=== PATIENT | female | born 1985 | race Caucasian/White ===

== ENCOUNTER 2017-09-17 03:52 | Emergency (ER) | payer BC ==
[2017-09-17] MEDS ORDERED: Ondansetron HCl/PF 4 MG/2 ML Vial ONE (04:07)
[2017-09-17] MEDS ORDERED: Ketorolac Tromethamine 30 MG/ML VIAL ONE (04:07)
[2017-09-17 04:22] LABS: #Basophils 0.2 thou/uL (0.0-0.2); #Eosinphils 0.1 thou/uL (0.0-0.7); #Lymphocytes 2.8 thou/uL (1.20-3.40); #Monocytes 0.8 thou/uL (0.11-0.59); #Neutrophils 8.2 thou/uL (1.40-6.50); %Basophils 1.3 % (0.0-1.0); %Eosinophils 1.2 % (0.0-10.0); %Lymphocytes 23.3 % (21.0-51.0); %Monocytes 6.5 % (0.0-10.0); %Neutrophils 67.7 % (42.0-75.0); Bilirubin Negative (Negative); Blood, Urine Trace (Negative); Clarity Clear (Clear); Glucose, Urine (Dipstick) Negative (Negative); Hemoglobin 13.3 g/dL (12.0-16.0); Leukocyte Negative (Negative); Mean Corpuscular Hemoglobin 29.5 pg (27.0-31.0); Mean Corpuscular Volume 89.4 fl (81.0-99.0); Mean Platelet Volume 7.4 fL (7.4-10.4); Nitrite Negative (Negative); Platelet Count 213 thou/uL (130-400); Protein, Urine (Dipstick) Negative (Neg-Trace); RBC Distribution Width 13.5 % (11.5-14.5); Red Blood Cell (RBC) Count 4.51 mill/uL (4.20-5.40); Specific Gravity, Urine 1.025 (1.005-1.030); Urobilinogen 0.2 mg/dL (0.2-1.0); White Blood Cell (WBC) Count 12.1 thou/uL (4.8-10.8)
[2017-09-17 04:23] LABS: Pregnancy Test - Urine (BHCG) Negative (Negative); Pregu Control Background? CLEAR/WHITE (CLR/WHITE); Pregu Control Bar Appear? YES (CONTROL BAR); Specific Gravity 1.025 (1.002-1.036)
[2017-09-17 04:30] LABS: RBC/HPF 0-3 HPF (0-3); WBC/HPF None Seen HPF (0-3)
[2017-09-17 04:31] LABS: Bacteria/HPF 1+ HPF (None Seen)
[2017-09-17 04:36] LABS: ALT (SGPT) 12 U/L (8-55); AST (SGOT) 12 U/L (5-34); Albumin 4.1 g/dL (3.5-5.0); Alkaline Phosphatase 56 U/L (40-150); Anion Gap 14 mmol/L (10-20); BUN (Urea Nitrogen) 12 mg/dL (7.0-18.7); Bilirubin, Total 0.2 mg/dL (0.2-1.2); Calc. Creatinine Clearance 0 mL/min (70-130); Calcium 9.2 mg/dL (7.8-10.44); Carbon Dioxide 24 mmol/L (22-29); Chloride 104 mmol/L (98-107); Estimated GFR-MDRD 85; Globulin 3.4 g/dL (2.4-3.5); Glucose 115 mg/dL (70-105); Lipase 21 U/L (8-78); Potassium 3.8 mmol/L (3.5-5.1); Protein, Total 7.5 g/dL (6.0-8.3); Sodium 138 mmol/L (136-145)
== END 2017-09-17 05:18 | disposition home or self-care (01) ==
LOC: NAV ERS 03:52
DX: R10.11 Right upper quadrant pain (principal); J45.909 Unspecified asthma, uncomplicated; F17.210 Nicotine dependence, cigarettes, uncomplicated
CPT/HCPCS: 80053; 81003; 81015; 81025; 83605; 83690; 85025; 93005; J1885; J2405

== ENCOUNTER 2019-11-29 13:43 | Emergency (ER) | payer BC ==
[2019-11-29] MEDS ORDERED: predniSONE 20 MG TAB ONE (13:58)
--- NOTE | 2019-11-29 14:21 | RAD ---
EXAM: Single view of the chest HISTORY: Shortness of breath and dyspnea COMPARISON: None FINDINGS: Single view of the chest shows a normal sized cardiomediastinal silhouette. There is no christoph dence of consolidation, mass, or pleural effusion. The bones are unremarkable. IMPRESSION: No evidence of acute cardiopulmonary disease
== END 2019-11-29 14:35 | disposition home or self-care (01) ==
LOC: NAV ERS 13:43
DX: J45.901 Unspecified asthma with (acute) exacerbation (principal); F17.210 Nicotine dependence, cigarettes, uncomplicated; J45.909 Unspecified asthma, uncomplicated; Z87.442 Personal history of urinary calculi
CPT/HCPCS: 71045; 94640; 94760; J7512; J7620

== ENCOUNTER 2022-09-19 08:46 | Emergency (ER) | payer BC ==
[2022-09-19] MEDS ORDERED: predniSONE 20 MG TAB ONE (09:42)
[2022-09-19] MEDS ORDERED: Benzonatate 100 MG CAP ONE (09:42)
== END 2022-09-19 11:14 | disposition home or self-care (01) ==
LOC: NAV ERS 08:46
DX: J40 Bronchitis, not specified as acute or chronic (principal); J45.41 Moderate persistent asthma with (acute) exacerbation; B34.9 Viral infection, unspecified; F17.210 Nicotine dependence, cigarettes, uncomplicated
CPT/HCPCS: J7512; J7620

== ENCOUNTER 2023-09-08 15:04 | Emergency (ER) | payer BC ==
[2023-09-08] MEDS ORDERED: Penicillin V Potassium 250 MG TAB ONE (16:03)
== END 2023-09-08 15:55 | disposition home or self-care (01) ==
LOC: NAV ERS 15:04
DX: K04.4 Acute apical periodontitis of pulpal origin (principal); K02.9 Dental caries, unspecified; F17.210 Nicotine dependence, cigarettes, uncomplicated; J45.909 Unspecified asthma, uncomplicated; Z79.51 Long term (current) use of inhaled steroids

== ENCOUNTER 2024-05-07 21:18 | Emergency (ER) | payer BC ==
[2024-05-07] MEDS ORDERED: Cephalexin 250 MG CAP ONE (21:39)
== END 2024-05-07 21:48 | disposition home or self-care (01) ==
LOC: NAV ERS 21:18
DX: L03.116 Cellulitis of left lower limb (principal); F17.210 Nicotine dependence, cigarettes, uncomplicated
CPT/HCPCS: 99283